=== PATIENT | female | born 1995 | race Caucasian/White ===

== ENCOUNTER 2022-01-06 16:03 | Outpatient (CLI) | payer BC | END 2022-01-06 16:04 | disposition home or self-care (01) | LOC: CSHLAB 16:03 | PROVIDERS: ATTEND Obstetrics & Gynecology | DX: Z20.822 Contact with and (suspected) exposure to COVID-19 (principal) | CPT/HCPCS: 87811 ==

== ENCOUNTER 2025-01-15 05:20 | Inpatient (IN) | payer MEDICAID, OTHER ==
[2025-01-15 06:45] VITALS: BMI 34.0
[2025-01-15] MEDS ORDERED: Methylergonovine 0.2 MG/ML VIAL IM PRN ×2 (08:30→20:37)
[2025-01-15] MEDS ORDERED: Ibuprofen 800 MG TAB PO PRN (08:30)
[2025-01-15] MEDS ORDERED: Oxytocin 30 units/NS 500 ML 500 ML IV SCH ×3 (08:30→21:00)
[2025-01-15] MEDS ORDERED: Lidocaine 1% (PF) 30 ML VIAL SC PRN (08:30)
[2025-01-15] MEDS ORDERED: Ondansetron PF 4 MG/2 ML Vial IVP PRN ×4 (08:30→20:37)
[2025-01-15] MEDS ORDERED: hydrALAZINE 20 MG/ML VIAL SLOW IVP PRN ×4 (08:30→20:37)
[2025-01-15] MEDS ORDERED: Carboprost 250 MCG/ML AMP IM PRN (08:30)
[2025-01-15] MEDS ORDERED: Acetaminophen 500 MG TAB PO PRN (08:30)
[2025-01-15] MEDS ORDERED: Diphenoxylate HCl/Atropine Tablet PO PRN ×2 (08:30)
[2025-01-15] MEDS ORDERED: HYDROcodone/Acetaminophen 5/325 mg Tablet PO PRN (08:30)
[2025-01-15] MEDS ORDERED: Tranexamic Acid 1,000 MG/10 ML VIAL IVP PRN (08:30)
[2025-01-15] MEDS: Oxytocin 30 units/NS 500 ML 500 ML IV SCH (08:59)
[2025-01-15 09:08] LABS: Hematocrit 38.5 % (34.9-44.5); Hemoglobin 12.3 g/dL (12.0-15.5); Mean Corpuscular Hemoglobin 26.4 pg (27.0-33.0); Mean Corpuscular Volume 82.6 fL (81.6-98.3); Platelet Count 215 10x3/uL (150-450); Red Blood Cell (RBC) Count 4.66 10x6/uL (3.90-5.03); White Blood Cell (WBC) Count 10.20 10x3/uL (3.5-10.5)
[2025-01-15 09:37] LABS: Syphilis Antibody Index 0.04 S/CO (<1.00 Non-Reactive)
[2025-01-15 09:38] LABS: Hep B Surf Ag - L&D Non-Reactive S/CO (NonReactive)
[2025-01-15] MEDS: fentaNYL/Ropivacaine Epidural 100 ML ONE (11:39)
[2025-01-15] MEDS ORDERED: diphenhydrAMINE 50 MG/ML VIAL IVP PRN (13:59)
[2025-01-15] MEDS ORDERED: Communication Order-Pharmacy FS SCH (14:00)
[2025-01-15] MEDS ORDERED: fentaNYL 2 mcg/Ropivacaine 0.2% Epidural 100 ML CADD EPIDURAL SCH (14:00)
[2025-01-15] MEDS ORDERED: Bupivacaine 0.25% HCL 30 ML VIAL ONE (19:23)
[2025-01-15] MEDS ORDERED: Bisacodyl 10 MG SUPP PR PRN (20:37)
[2025-01-15] MEDS ORDERED: Preparation H Ointment 28 GM TUBE PR PRN (20:37)
[2025-01-15] MEDS ORDERED: Milk Of Magnesia 30 ML UDCUP PO PRN (20:37)
[2025-01-15] MEDS ORDERED: diphenhydrAMINE 25 MG CAP PO PRN (20:37)
[2025-01-15] MEDS ORDERED: Boostrix 0.5 ML (Tdap) VIAL (>/=7 yrs of age) IM ONE (20:37)
[2025-01-15] MEDS ORDERED: Lanolin Ointment 7 GM TUBE TOP PRN (20:37)
[2025-01-15] MEDS ORDERED: Benzocaine-Menthol 82.5 ML CAN TOP PRN (20:37)
[2025-01-15] MEDS: Ibuprofen 800 MG TAB PO SCH (21:00)
[2025-01-15] MEDS: Ferrous Sulfate 325 MG TAB PO SCH (21:00)
[2025-01-16] MEDS: Ferrous Sulfate 325 MG TAB PO SCH (08:35)
[2025-01-16] MEDS: Acetaminophen 325 MG TAB PO PRN (08:35)
[2025-01-16 17:00] VITALS: BP 128/70; TEMP 98.8
== END 2025-01-16 17:25 | disposition home or self-care (01) | DRG 807 ==
LOC: CSHLD 05:20 → CSHPP 20:00
PROVIDERS: ADMIT Family Medicine; ATTEND Family Medicine
PROC: 10E0XZZ Delivery of Products of Conception, External Approach (ICD-10-PCS; principal; 2025-01-15)
PROC: 10907ZC Drainage of Amniotic Fluid, Therapeutic from Products of Conception, Via Natural or Artificial Opening (ICD-10-PCS; 2025-01-15)
DX: O24.12 Pre-existing type 2 diabetes mellitus, in childbirth (principal); Z37.0 Single live birth; Z3A.38 38 weeks gestation of pregnancy
CPT/HCPCS: 36416; 51702; 85027; 86780; 86850; 86900; 86901; 87340; J0665; J2590